=== PATIENT | male | born 1995 | race Caucasian/White ===

== ENCOUNTER 2019-11-26 18:13 | Emergency (ER) | payer OTHER ==
[~2019-11-26] VITALS: Ht 190.5 cm; Wt 133.8 kg
== END 2019-11-26 19:19 | disposition left against medical advice (07) ==
LOC: ER 18:13
DX: Z53.21 Procedure and treatment not carried out due to patient leaving prior to being seen by health care provider (principal)
CPT/HCPCS: 99283